=== PATIENT | female | born 1990 | race Caucasian/White ===

== ENCOUNTER 2022-12-31 10:23 | Outpatient (CLI) | payer BC, SELFPAY ==
[2022-12-31 11:50] LABS: Albumin* 4.1 g/dL (3.3-5.0); Chloride* 104 mmol/L (96-114)
[2022-12-31 11:51] LABS: Potassium* 4.3 mmol/L (3.6-5.1); Sodium* 138 mmol/L (135-149)
[2022-12-31 11:53] LABS: Alanine Aminotransferase* 27 U/L (4-35); Alkaline Phosphatase* 65 U/L (40-150); Aspartate Amino Transferase* 25 U/L (12-35); Bilirubin Total* 0.9 mg/dL (0.1-1.5); Blood Urea Nitrogen* 10 mg/dL (5-24); Carbon Dioxide* 28 mmol/L (20-32); Cholesterol* 157 mg/dL (90-199); Creatinine* 0.6 mg/dL (0.5-1.5); Estimated Glomerular Filt Rate 121 ml/min; Glucose* 103 mg/dL (60-115); Total Protein* 6.7 g/dL (6.0-8.3)
[2022-12-31 11:54] LABS: Calcium* 9.6 mg/dL (8.4-10.6); HDL Cholesterol* 51 mg/dL (>=50); LDL Cholesterol Calculated 75 mg/dL (<100); Triglycerides* 155 mg/dL (40-149)
[2022-12-31 12:43] LABS: Vitamin B12* 269 pg/mL (243-894)
== END 2022-12-31 10:24 | disposition home or self-care (01) ==
PROVIDERS: PCP Family Medicine; Visit Provider Family Medicine
DX: Z00.00 Encounter for general adult medical examination without abnormal findings (principal); E78.5 Hyperlipidemia, unspecified; R53.83 Other fatigue; E66.01 Morbid (severe) obesity due to excess calories; R73.03 Prediabetes; F32.A Depression, unspecified; R40.0 Somnolence
CPT/HCPCS: 80053; 80061; 82607; 84443

== ENCOUNTER 2023-08-24 15:34 | Outpatient (CLI) | payer BC, SELFPAY ==
[2023-08-24 21:01] LABS: Chlamydia DNA Amplified* NOT DETECTED (No Detected); GC DNA Amplified* NOT DETECTED (No Detected)
== END 2023-08-24 15:35 | disposition home or self-care (01) ==
PROVIDERS: PCP Family Medicine; Visit Provider Obstetrics & Gynecology
DX: N92.0 Excessive and frequent menstruation with regular cycle (principal); R63.4 Abnormal weight loss; Z11.3 Encounter for screening for infections with a predominantly sexual mode of transmission; Z11.59 Encounter for screening for other viral diseases
CPT/HCPCS: 84443; 86592; 86694; 86695; 86696; 86703; 86803; 87340; 87491; 87591

== ENCOUNTER 2023-08-25 14:49 | Outpatient (CLI) | payer BC, SELFPAY ==
--- NOTE | 2023-08-25 15:00 | CRLHL7_ITS ---
For Patients: As a result of the Century Cures Act, medical imaging exams and procedure reports are released immediately into your electronic medical record. You may view this report before your referring provider. If you have questions, please contact your health care provider. INDICATION: Dysfunctional uterine bleeding. Intrauterine device. TECHNIQUE: Transabdominal and transvaginal pelvic ultrasound. FINDINGS: The uterus measures 6.4 x 3.7 x 4.4 cm. Intrauterine device appropriately positioned. Although not specifically measured, the visualized endometrial stripe does not appear to be thickened. It is somewhat obscured by the intrauterine device however. No free pelvic fluid. The right ovary measures 2.9 x 1.8 x 1.7 cm. The left ovary measures 2.9 x 1.7 x 1.8 cm. Blood flow is seen within both ovaries. Each ovary contains a few small normal follicles. IMPRESSION: Normal transabdominal and transvaginal pelvic ultrasound. Intrauterine device appropriately positioned. The endometrial stripe does not appear to be thickened but is suboptimally visualized due to the presence of the intrauterine device. Dictated by Rahul Healy MD @ 08/26/2023 12:04:26 PM (Electronically Signed)
== END 2023-08-25 14:50 | disposition home or self-care (01) ==
LOC: US 14:49
PROVIDERS: PCP Family Medicine; Visit Provider Obstetrics & Gynecology
DX: N92.0 Excessive and frequent menstruation with regular cycle (principal)
CPT/HCPCS: 76830; 76856

== ENCOUNTER 2023-10-07 11:15 | Outpatient (CLI) | payer BC, SELFPAY | END 2023-10-07 11:16 | disposition home or self-care (01) | LOC: FBOREF 11:16 | PROVIDERS: PCP Family Medicine; Visit Provider Family Medicine | DX: E78.2 Mixed hyperlipidemia (principal); Z01.818 Encounter for other preprocedural examination | CPT/HCPCS: 80048 ==

== ENCOUNTER 2023-10-13 07:40 | Day surgery (SDC) | payer BC, SELFPAY ==
--- NOTE | 2023-10-13 07:57 | P.GYNHP_ITS ---
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 She is s/p pre-op exam with Dr. Mcdonnell on 10/08/23 with no interval changes. We again reviewed risks, benefits and alternatives where she affirmed desire to proceed. No chest pain, dyspnea, dizziness/lightheadedness, nausea/vomiting, bowel or bladder concerns. UPT negative. PFSH PFS Medical History (Updated 09/02/23 @ 21:27 by Loraine Peters MD) Generalized anxiety disorder ?F41.1 - Generalized anxiety disorder (ICD-10) Passive suicidal ideations ?R45.851 - Suicidal ideations (ICD-10) Binge-eating disorder, in partial remission, mild ?F50.81 - Binge eating disorder (ICD-10) Prurigo nodularis ?L28.1 - Prurigo nodularis (ICD-10) Alcohol use disorder ?F10.90 - Alcohol use, unspecified, uncomplicated (ICD-10) ADHD ?F90.9 - Attention-deficit hyperactivity disorder, unspecified type (ICD-10) Chronic diarrhea (2002) ?K52.9 - Noninfective gastroenteritis and colitis, unspecified (ICD-10) Major depression ?F32.9 - Major depressive disorder, single episode, unspecified (ICD-10) Morbid obesity ?E66.01 - Morbid (severe) obesity due to excess calories (ICD-10) Dyslipidemia ?E78.5 - Hyperlipidemia, unspecified (ICD-10) Prediabetes ?R73.03 - Prediabetes (ICD-10) History of gestational diabetes mellitus (GDM) ?Z86.32 - Personal history of gestational diabetes (ICD-10) Chlamydia trachomatis infection of lower genitourinary site (12/27/10) ?A56.09 - Other chlamydial infection of lower genitourinary tract (ICD-10) Surgical History (Updated 10/08/23 @ 23:31 by Darrell Mcdonnell MD) History of wisdom tooth extraction ?K08.409 - Partial loss of teeth, unspecified cause, unspecified class (ICD- 10) History of colposcopy (2012) ?Z98.890 - Other specified postprocedural states (ICD-10) History of laparoscopic cholecystectomy (2002) ?Z90.49 - Acquired absence of other specified parts of digestive tract (ICD- 10) History of knee surgery (2009) ?Z98.890 - Other specified postprocedural states (ICD-10) Encounter for insertion of intrauterine contraceptive device (IUD) (2018) ?Z30.430 - Encounter for insertion of intrauterine contraceptive device (ICD- 10) Family History (Updated 12/31/22 @ 12:48 by Stephani Arellano MD) Maternal Grandmother Breast cancer, Onset Age: 80 Father Diabetes Leukemia, Onset Age: 80 Alcohol dependence Drug abuse Social History (Updated 12/31/22 @ 12:50 by Stephani Arellano MD) 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: , 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, 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 Cigarette smoker 5 per day, 16 pack years Excessive alcohol use 12 drinks / week, 60 /month Does not exercise Smoking Status: Current every day smoker Little interest or pleasure in doing things: several days Feeling down, depressed, or hopeless: more than half the days Meds Home Medications and Allergies Home Medications Medication Instructions Recorded Confirmed Type famotidine 20 mg tablet (Heartburn 20 mg PO QDAY 12/31/22 10/07/23 History Relief (famotidine)) fexofenadine 60 mg tablet (Brianne 60 mg PO BID 08/24/23 10/07/23 History Allergy) colestipol 1 gram tablet 4 g PO QDAY 08/26/23 10/07/23 History Allergies Allergy/AdvReac Type Severity Reaction Status Date / Time iodine Allergy Intermediate hives, red Verified 10/07/23 11:09 skin, itching, burning povidone-iodine Allergy Unknown Verified 10/07/23 11:09 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 Surgical consent re-signed this morning. - UPT negative - Prep with hibiclens in the setting of iodine allergy - Post-op restrictions, expectations and return precautions reinforced
[2023-10-13 07:59] LABS: Ur HCG Qualitative* Negative (Negative)
[2023-10-13 08:01] VITALS: BMI 38.0
[2023-10-13 08:06] VITALS: BP 122/85; PULSE 72; RESP 20; TEMP 36.3; O2SAT 95
[2023-10-13] MEDS: SODIUM CHLORIDE 0.9 % (FLUSH) 10 ML SYRINGE IVF (08:24)
[2023-10-13] MEDS: LACTATED RINGERS 1000 ML 1,000 ML 100 ML IV (08:25)
[2023-10-13] MEDS: BUPIVACAINE 0.5% 30 ML INJECTION (09:06)
--- NOTE | 2023-10-13 09:10 | W.ANESCHARGE ---
Anesthesia Charges Start Date/Time Anesthesia Start Date: 10/13/23 Anesthesia Start Time: 08:48 Stop Date/Time Anesthesia Stop Date: 10/13/23 Anesthesia Stop Time: 09:46
[2023-10-13 09:45] VITALS: BP 118/83; PULSE 69; RESP 16; TEMP 36.2; O2SAT 97
--- NOTE | 2023-10-13 09:47 | W.ANESCHARGE ---
Anesthesia Charges Start Date/Time Anesthesia Start Date: 10/13/23 Anesthesia Start Time: 08:48 Stop Date/Time Anesthesia Stop Date: 10/13/23 Anesthesia Stop Time: 09:46
--- NOTE | 2023-10-13 09:51 | W.PM.GYNPROC ---
Procedure Note Time Seen by Provider: 09:51 Date of procedure: 10/13/23 Pre-op diagnosis: Abnormal uterine bleeding Post-op diagnosis: same Procedure: Removal of existing IUD, hysteroscopy, dilation and curettage with TruClear, Soha endometrial ablation, Mirena IUD insertion Anesthesia: MAC and local Complications: None Surgeon: Ngoc Peters MD Estimated blood loss (mL): 5 Urine Output (mL): 75 Pathology: specimen obtained, sent to pathology Condition: stable Disposition: same day Findings: Diffusely proliferative endometrium Fundal endometrial polyp (small) Procedure Description: Procedure in detail: Patient was taken to the operating room with IV running. She was positioned in dorsal lithotomy position with her legs fully supported in [place] stirrups. Monitored anesthesia care was administered. She was prepped and draped in the usual sterile fashion, with Hibiclens in the setting of iodine allergy. Speculum was inserted. Cervix easily visualized and grasped along the anterior lip with a single-tooth tenaculum. Paracervical block was performed in the usual fashion with 0.5% Marcaine. Cervix was serially dilated to accommodate the TRUCLEAR hysteroscope. This was assembled with saline inflow and outflow in place. The line was flushed of bubbles. The hysteroscope was advanced through the cervix into the endometrial cavity for the above noted findings. The tissue morcellator was then inserted through the operating channel. Window lock was performed. Under direct visualization, the fundal endometrial polyp was first resected. The entire endometrial cavity was circumferentially curetted with the tissue morcellator. The hysteroscope and morcellator were then removed from the uterus. Uterine sounding length was noted to be 8.5 cm, with cervical length of 3.5cm. The Soha device was then set to a cavity length of 5 cm, inserted through the cervical os into the uterine cavity to the level of the fundus, and deployed. The device was sealed against the cervix. The safety checks were then passed x2 and the 2-minute treatment cycle initiated. Following completion of the treatment cycle, the cervical balloon was deflated, array closed and Soha device was removed. The hysteroscope was advanced again into the uterine cavity and the uterine cavity inspected. A good ablation was noted from the internal os to fundus and to the cornua bilaterally. Pictures were taken for documentation purposes. The hysteroscope was removed. Finally, Mirena IUD was inserted in the usual fashion without difficulty. Brief post placement hysteroscopy was performed, ensuring proper placement of the IUD at the uterine fundus. Hysteroscope was removed. Tenaculum was removed from the anterior lip of cervix. Hemostasis was noted. Patient tolerated procedure well. She was taken to recovery area in stable condition.
[2023-10-13 10:02] VITALS: BP 114/90; PULSE 85; RESP 16; O2SAT 97
[2023-10-13 10:15] VITALS: BP 127/92; PULSE 75; RESP 16; O2SAT 98
== END 2023-10-13 10:42 | disposition home or self-care (01) ==
PROVIDERS: PCP Family Medicine; Visit Provider Obstetrics & Gynecology
PROC: 0UF98ZZ Fragmentation in Uterus, Via Natural or Artificial Opening Endoscopic (ICD-10-PCS; CPT 58563; principal; 2023-10-13 08:45)
DX: N93.8 Other specified abnormal uterine and vaginal bleeding (principal); Z30.433 Encounter for removal and reinsertion of intrauterine contraceptive device; N84.0 Polyp of corpus uteri
CPT/HCPCS: 58563; 58301; 58300; 00952; 81025; 88305; J0665; J1100; J1885; J2250; J2405; J2704; J3010; J7120; J7298